=== PATIENT | female | born 1985 | race African-American/Black ===

== ENCOUNTER 2022-02-15 08:33 | Outpatient (REF) | payer OTHER, SELFPAY ==
--- NOTE | ~2022-02-15 | XR_ITS ---
EXAMINATION: XR SACROILIAC JOINTS CLINICAL INFORMATION: Low back pain. COMPARISON: None TECHNIQUE: 3 views of the sacroiliac joints FINDINGS: Bones and soft tissues are normal. No fracture. Alignment is anatomic. Sacroiliac joint spaces are well-maintained without erosions or surrounding sclerosis. XR/XR sacroiliac joint min 3V IMPRESSION: Normal sacroiliac joints.
[2022-02-15 09:04] LABS: MANUAL DIFF FLAG NO
[2022-02-15 09:48] LABS: Basophils Percent Auto 0.8 % (0-2); Eosinophils Absolute Auto 0.1 X10*3/uL (0.0-0.4); Eosinophils Percent Auto 1.5 % (0-4); Hematocrit 37.5 % (37.0-47.0); Hemoglobin 12.3 g/dl (12.0-16.0); Imm Gran Abs Auto 0.01 X10*3/uL (0.00-0.03); Imm Gran Pct Auto 0.3 % (0.0-0.4); Lymphocytes Absolute Auto 1.4 X10*3/uL (1.2-4.9); Lymphocytes Percent Auto 35.8 % (20-40); Mean Corpuscular HGB Conc 32.8 g/dl (31.0-35.0); Mean Corpuscular Hemoglobin 30.5 pg (27.0-33.0); Mean Corpuscular Volume 93.1 fL (80.0-98.0); Mean Platelet Volume 9.5 fL (9.4-12.3); Monocytes Absolute Auto 0.3 X10*3/uL (0.1-1.2); Monocytes Percent Auto 6.9 % (2-11); Neutrophils Absolute Auto 2.2 x10*3/uL (2.0-8.3); Neutrophils Percent Auto 54.7 % (45-73); Platelet Count 239 X10*3/uL (160-400); Red Blood Count 4.03 X10*6/uL (4.20-5.50); Red Cell Distribution Width 13.3 % (11.0-16.0); White Blood Count 3.9 X10*3/uL (4.8-10.8)
[2022-02-15 10:08] LABS: Alanine Aminotransferase 10 U/L (0-31); Alkaline Phosphatase 74 U/L (39-117); Anion Gap 13 (12-20); Aspartate Amino Transferase 16 U/L (5-31); Bilirubin Total 0.6 mg/dL (0.0-1.0); Blood Urea Nitrogen 13 mg/dL (9-16); C Reactive Protein 0.05 mg/dL (< or = 0.50); Calcium 8.9 mg/dL (8.4-10.2); Carbon Dioxide 25 mmol/L (22-29); Chloride 107 mmol/L (96-108); Estimated Glomerular Filt Rate > 60; Glucose Random 77 mg/dL (60-115); Potassium 3.9 mmol/L (3.3-5.1); Sodium 141 mmol/L (135-145); Total Protein 6.9 g/dL (6.5-8.0)
[2022-02-15 10:29] LABS: Free T4 (Free Thyroxine) 0.79 ng/dL (0.71-1.85)
[2022-02-15 11:14] LABS: Appearance Urine Clear; Color Urine Yellow; Glucose Urine UA Negative (Negative); Leukocyte Esterase Urine Negative (Negative); Nitrite Urine Negative (Negative); Specific Gravity - Urine >= 1.030 (1.005-1.025); Urine Blood Negative (Negative); Urine Ketones Trace mg/dL (Negative); Urine Protein Negative (Neg-Trace)
[2022-02-15 11:21] LABS: Bacteria Urine None Seen (None Seen); Hyaline Casts Urine 0-2 /LPF (0-2); RBC Urine 0-2 /HPF (0-2); WBC Urine 0-5 /HPF (0-5)
[2022-02-15 11:36] LABS: Protein/Creatinine Ratio, Ur 0.03 (<0.2); Total Protein Urine Random 13 mg/dL (<12)
[2022-02-15 12:40] LABS: Erythrocyte Sedimentation Rate 9 MM/HR (0-20)
[2022-02-16 10:56] LABS: Complement C3 122 mg/dL (83-193)
[2022-02-16 22:06] LABS: Thyroid Peroxidase Antibodies 375 IU/mL (<9)
[2022-02-17 05:17] LABS: Thyroglobulin Antibodies 1 IU/mL (< or = 1)
[2022-02-17 23:11] LABS: Prot Elec - Alpha1 0.3 g/dL (0.2-0.3); Prot Elec - Alpha2 0.6 g/dL (0.5-0.9); Prot Elec - Beta 1 0.4 g/dL (0.4-0.6); Prot Elec - Beta 2 0.4 g/dL (0.2-0.5); Prot Elec - Gamma 1.3 g/dL (0.8-1.7); Prot Elec - Total Protein 6.9 g/dL (6.1-8.1)
[2022-02-19 14:06] LABS: Anti Nuclear Antibody Screen NEGATIVE (NEGATIVE)
[2022-02-19 14:22] LABS: IgA 130 mg/dL (47-310); IgG 1458 mg/dL (600-1640); IgM 73 mg/dL (50-300)
[2022-02-19 17:01] LABS: Anti DNA DS Antibody <1 IU/mL; Antibody to SS-A Antigen <1.0 NEG AI (<1.0 NEG); Antibody to SS-B Antigen <1.0 NEG AI (<1.0 NEG); SM/Ribonucleoprotein Ab <1.0 NEG AI (<1.0 NEG); Scleroderma 70 Antibody <1.0 NEG AI (<1.0 NEG); Smith Protein <1.0 NEG AI (<1.0 NEG)
[2022-02-20 10:22] LABS: HLA B27 Negative (Negative)
[2022-02-20 12:26] LABS: Anti-Centromere B Antibodies <1.0 NEG AI (<1.0 NEG)
[2022-02-20 13:11] LABS: DRVVT 1:1 Mix Interpretation Not Indicated; Hexagonal Phase Neutralization Negative (Negative); PTT (LAC) Screen 43 sec (<=40)
[2022-02-20 20:36] LABS: Beta-2 Glycoprotein IgA <2.0 U/mL (<20.0); Beta-2 Glycoprotein IgG <2.0 U/mL (<20.0); Beta-2 Glycoprotein IgM <2.0 U/mL (<20.0)
[2022-02-22 07:42] LABS: Cardiolipin IgG Ab <2.0 GPL-U/mL; Cardiolipin IgM Ab <2.0 MPL-U/mL
== END 2022-02-15 08:34 | disposition home or self-care (01) ==
LOC: HO.10HDL 08:33
PROVIDERS: Visit Provider Student in an Organized Health Care Education/Training Program
DX: R76.8 Other specified abnormal immunological findings in serum (principal); E05.00 Thyrotoxicosis with diffuse goiter without thyrotoxic crisis or storm; M79.10 Myalgia, unspecified site; M54.50 Low back pain, unspecified
CPT/HCPCS: 36415; 72202; 80053; 81001; 82550; 82784; 84156; 84165; 84439; 84443; 85025; 85597; 85613; 85652; 85730; 86038; 86039; 86140; 86146; 86147; 86160; 86225; 86235; 86334; 86376; 86800; 86812

== ENCOUNTER 2025-04-16 13:04 | Outpatient (REF) | payer OTHER, SELFPAY ==
--- NOTE | 2025-04-16 13:07 | EMG_ITS ---
Chief complaint: Bilateral arm pain/hand pain Reason for referral: Evaluate for Carpal Tunnel Syndrome versus ulnar neuropathy versus radiculopathy Referred by: Angi FLOYD Procedure done: Bilateral upper extremities NCS/EMG Precautions and/or limitations: None The limb temperature was monitored continuously and remained between 32-36 degrees C during the performance of the NCS. Nerve Conduction Studies Anti Sensory Summary Table ?Stim Site NR Onset (ms) Norm Onset (ms) Peak (ms) Norm Peak (ms) O-P Amp (?V) Norm O-P Amp Site1 Site2 Delta-0 (ms) Dist (cm) Alek (m/s) Norm Alek (m/s) Left Median Anti Sensory (2nd Digit) Wrist ? 2.6 3.4 <3.6 63.5 >10 Wrist 2nd Digit 2.6 14.0 54 Right Median Anti Sensory (2nd Digit) Wrist ? 2.3 3.0 <3.6 47.6 >10 Wrist 2nd Digit 2.3 14.0 61 Left Ulnar Anti Sensory (5th Digit) Wrist ? 2.7 3.6 <3.7 61.4 >15.0 Wrist 5th Digit 2.7 14.0 52 Right Ulnar Anti Sensory (5th Digit) Wrist ? 2.5 3.2 <3.7 43.2 >15.0 Wrist 5th Digit 2.5 14.0 56 Motor Summary Table ?Stim Site NR Onset (ms) Norm Onset (ms) O-P Amp (mV) Norm O-P Amp iAmp (mV) Amp (1st) (%) Site1 Site2 Delta-0 (ms) Dist (cm) Alek (m/s) Norm Alek (m/s) Left Median Motor (Abd Poll Brev) Wrist ? 3.2 <3.9 14.2 >4.5 15.8 100.0 Elbow Wrist 3.8 21.0 55 >45 Elbow ? 7.0 12.4 14.4 87.3 Right Median Motor (Abd Poll Brev) Wrist ? 3.0 <3.9 11.0 >4.5 12.5 100.0 Elbow Wrist 4.0 22.0 55 >45 Elbow ? 7.0 10.6 12.3 96.4 Left Ulnar Motor (Abd Dig Minimi) Wrist ? 3.0 <3.0 10.3 >5 13.5 100.0 B Elbow Wrist 3.4 20.0 59 >45 B Elbow ? 6.4 11.3 14.4 109.7 A Elbow B Elbow 1.7 10.0 59 >45 A Elbow ? 8.1 12.0 15.2 116.5 Right Ulnar Motor (Abd Dig Minimi) Wrist ? 2.6 <3.0 9.3 >5 11.1 100.0 B Elbow Wrist 3.3 19.5 59 >45 B Elbow ? 5.9 8.2 10.1 88.2 A Elbow B Elbow 1.3 10.0 77 >45 A Elbow ? 7.2 8.2 10.2 88.2 Comparison Summary Table ?Stim Site NR Peak (ms) Norm Peak (ms) P-T Amp (?V) Site1 Site2 Delta-P (ms) Norm Delta (ms) Right Median/Radial Dig I Comparison (Digit 1 - 10cm) Median ? 2.3 <2.9 58.3 Median Radial 0.3 Radial ? 2.6 <2.8 20.3 EMG ?Side Muscle Nerve Root Ins Act Fibs Psw Amp Dur Poly Recrt Int Pat Comment Right 1stDorInt Ulnar C8-T1 Nml Nml Nml Nml Nml 0 Nml Complete Right FlexCarRad Median C6-7 Nml Nml Nml Nml Nml 0 Nml Complete Right Biceps Musculocut C5-6 Nml Nml Nml Nml Nml 0 Nml Complete Right Triceps Radial C6-7-8 Nml Nml Nml Nml Nml 0 Nml Complete Right Deltoid Axillary C5-6 Nml Nml Nml Nml Nml 0 Nml Complete Left 1stDorInt Ulnar C8-T1 Nml Nml Nml Nml Nml 0 Nml Complete Left FlexCarRad Median C6-7 Nml Nml Nml Nml Nml 0 Nml Complete Left Biceps Musculocut C5-6 Nml Nml Nml Nml Nml 0 Nml Complete Left Triceps Radial C6-7-8 Nml Nml Nml Nml Nml 0 Nml Complete Left Deltoid Axillary C5-6 Nml Nml Nml Nml Nml 0 Nml Complete FINDINGS: All motor and sensory nerves tested showed normal latencies, amplitudes and conduction velocities. Concentric needle EMG was performed in selected muscles of the bilateral upper extremities. Study did not reveal signs of electric abnormalities as shown in the table above. IMPRESSION: 1. This is a normal study. 2. There is no electrodiagnostic evidence for median neuropathy, ulnar neuropathy, brachial plexopathy, or cervical radiculopathy. Thank you for your kind referral. Jemima Henderson MD, ANAHI Board Certified, [place] [employer] and [employer] (ABPMR) Board Certified, [place] [employer] Electrodiagnostic Medicine (ABEM) CODIN [id number] x 2 extremities MTDD
--- OUTSIDE RECORDS SUMMARY | 2025-04-16 13:25 | XMS_ITS | Encounter Summary ---
Author Organization [facility] [place] [address] Care Team Providers Care Financial Accounting Analyst Name Role Phone Martinez Valdez MD Primary Care Provider [phone] Encounter Details Date Type Department Care Team ([facility] Contact Info) Description 03/18/2025 Results Follow-Up Internal Medicine - [place] [address] [place] [phone] Emily Bland NP [address] [place] [address] Social History Tobacco Use Types Packs/Day Years Used Date Smoking Tobacco: Former Smokeless Tobacco: Never Alcohol Use Standard Drinks/Week Comments Not Currently 0 (1 standard drink = 0.6 oz pur e alcohol) Housing Instability Answer Date Recorde d Are you worried that in the next 2 months you may not have stable housing? No 01/05/2025 Food Access & Nutrition Answer Date Rec orded Do you have access to a vari ety of food including fruits and vegetables? Yes 01/05/2025 Access to Healthcare Answer Date Record ed Within the last 3 months, ho w many times did you visit the emergency department for your medical care? 3 01/05/2025 Health Literacy Answer Date Recorded How often do you need to hav e someone help you when you read instructions, pamphlets, or other written material from your doctor or pharmacy? Rarely 01/05/2025 Caregiver: How often do you need to have someone help you when you read instructions, pamphlets, or other written material from your doctor or pharmacy? Not on file 01/05/2025 Financial Risk Answer Date Recorded How hard is it for you to pa y for the very basics like food, housing, medical care, and air conditioning / heating? Patient declined 01/05/2025 Transportation Answer Date Recorded Has the lack of transportati on kept you from meetings, work, or from getting things needed for daily living? No Has the lack of transportati on kept you from medical appointments or from getting medications? No 01/05/2025 Social Isolation Answer Date Recorded How often do you feel lonely or isolated from those around you? Patient declined 01/05/2025 Food Risk Answer Date Recorded Within the past 12 months we worried whether our food would run out before we got money to buy more. Never true 025 Within the past 12 months th e food we bought just didn't last and we didn't have money to get more. Patient declined 12/25 Dependent Care Answer Date Recorded Do you need help finding or paying for care for your loved ones. For example, early childhood education instructor or elderly care for an older adult? Yes 01/05/2025 Education Answer Date Recorded Do you think completing more education or training, like finishing a GED, going to college, or learning a trade, would be helpful for you? Yes 01/05/2025 Employment and Income Answer Date Recor ded During the last four weeks, have you been actively looking for work? Yes 01/05/2025 Living Situation Answer Date Recorded What is your living situation? Unrecognized valu e 01/05/2025 Comments No Sex and Gender Information Value Date Recorded Sex Assigned at Female 11/03/2024 3:42 PM EDT Legal Sex Female 10:19 PM EST Gender Identity Female 11/03/2024 3:42 PM EDT Sexual Orientation Not on file documented as of this encounter Plan of Treatment Upcoming Encounters Date Type Department Care Team (Late st Contact Info) Description 04/20/2025 8:00 AM EST Office Visit Orthopedic Surgery - [place] [address] [place] [phone] Angi Noonan PA [address] [place] [phone] 04/27/2025 8:00 AM EST Procedure visit Orthopedic Surgery - [place] [address] [facility] [address] [place] [phone] Fiona Dwyer MD [address] [facility] [address] [place] [address] 06/07/2025 10:[address] [facility] Ultrasound [address] [place] [phone] 06/07/2025 1:00 PM EST Appointment [facility] [address] [place] [phone] 07/07/2025 4:00 PM EST Office Visit Pulmonology - [place] [address] [facility] [address] [place] [phone] Karrie Lynch MD [address] [place] [phone] 03/11/2026 10:00 AM EDT Office Visit Vascular Surgery - [place] [address] [place] [address] Angélica Barcenas PA [address] [place] [phone] documented as of this encounter Visit Diagnoses Not on filedocumented in this encounter Additional Health Concerns Assessment Noted Time PHQ-9 Depression Total Score: 9 01/06/20 25 1:00 PM EDT documented as of this encounter Care Teams Financial Accounting Analyst Relationship Specialty Start Date End Date Martinez Valdez MD [address] [facility] [address] [place] [address] PCP - General Internal Medicine 08/26/20 documented as of this encounter
--- OUTSIDE RECORDS SUMMARY | 2025-04-16 13:26 | XMS_ITS ---
Author Name [facility] Organization Unknown Encounters Encounter Type Encounter Reason Primary Diagnosis Location Date Ambulatory [facility] 03/06/2024 Care Team Organization Name Specialty Phone Email Start Date End Da te [facility] 2024
--- OUTSIDE RECORDS SUMMARY | 2025-04-16 13:26 | XMS_ITS | Clinical Summary ---
Author Organization [facility] Address [address] [place] [address] Care Team Providers Care Sand Mixer Operator Name Role Phone Kamila Patton Primary Care Provider [phone] Allergies Active Allergy Reactions Criticality Noted Date Comments Gabapentin Unknown 06/14/2020 Sulfa (Sulfonamide Antibiotics) Rash 05/27 Topiramate Swelling,Rash High 06/14/2020 Medications FLUoxetine (PROzac) 40 mg capsule Take 20 mg by mouth daily. 03/28/2020 Active LORazepam (ATIVAN) 0.5 mg tablet TK 1 T PO D PRN 03/28/2020 Active vitamin D3 25 mcg (1,000 unit) capsule Take 1 capsule by mouth daily. Active ascorbic acid (VITAMIN C) 500 mg tablet Take 500 mg by mouth daily. Active Active Problems Problem Noted Date Diagnosed Date Graves' disease 07/22/2020 Overview (07/22/2020): IMO update Family History Medical History Relation Name Comments Diabetes Father Heart disease Mother Relation Name Status Comments Father Mother Alive Social History Tobacco Use Types Packs/Day Years Used Date Smoking Tobacco: Never Smokeless Tobacco: Never Alcohol Use Standard Drinks/Week Comments Yes 0 (1 standard drink = 0.6 oz pure alcohol) 2-3 times a week wine and/or tequila Comments No Sex and Gender Information Value Date Recorded Sex Assigned at Female 07/25/2020 2:39 PM EST Legal Sex Female 9:28 AM EST Gender Identity Female 07/25/2020 2:39 PM EST Sexual Orientation Straight 07/25/2020 2: 39 PM EST Last Filed Vital Signs Vital Sign Reading Time Taken Comments Blood Pressure 121/86 06/14/2020 10:55 AM EST Pulse 77 06/14/2020 10:55 AM EST Temperature - - Respiratory Rate - - Oxygen Saturation - - Inhaled Oxygen Concentration - - Weight - - Height - - Body Mass Index - - Plan of Treatment Health Maintenance Due Date Last Done Comments Cervical Cancer Screening 1983 HIV Screening 1983 HPV and Pap Smear 1983 Pap Smear 1983 Varicella Vaccines (1 of 2 - 13+ 2-dose series) 1996 Hepatitis B Vaccines (1 of 3 - 19+ 3-dose series) 2002 DTaP,Tdap,and Td Vaccines (1 - Tdap) 2005 Mammogram 2023 Alcohol/Substance Use Screening 05/27/2024 Influenza Vaccine (#1) 2024 0, 05/30/2009 COVID-19 Vaccine ( - 2024-2 6 season) 2025 Pneumococcal Vaccine: Pediatric (0-5 Years) and At-Risk Patients (6-50 Years) Aged Out No longer eligible based on patient's age to complete this topic Insurance [employer] [place] [id number] Care Teams Sand Mixer Operator Relationship Specialty Start Date End Date Kamila Patton [address] [place] [address] PCP - General Internal Medicine 06/01/20
--- OUTSIDE RECORDS SUMMARY | 2025-04-16 13:26 | XMS_ITS | Clinical Summary ---
Author Organization [facility] Address [address] [place] [id number] Care Team Providers Care Wafer Production Worker Name Role Phone Martinez Valdez MD Primary Care Provider Unavailab le Allergies Active Allergy Reactions Criticality Noted Date Comments Gabapentin Other (See Comments) Medium 06/14/2020 Constipation Sulfa Antibiotics Rash Low 06/14/2020 Topiramate Swelling,Rash High 06/14/2020 Facial swelling Medications Medication Sig Dispensed Refills Start Date End Date Status Cholecalciferol 25 MCG (1000 UT) capsule Take 1 capsule by mouth daily. 0 Active ascorbic acid (VITAMIN C) 500 MG tablet Take 500 mg by mouth. 0 Active cyclobenzaprine (FLEXERIL) 5 MG tablet TAKE 1 TABLET BY MOUTH DAILY NEEDED FOR MUSCLE SPASMS AT BEDTIME 0 04/04/2021 Active FLUoxetine (PROzac) 20 MG capsule TAKE 1 CAPSULE BY MOUTH EVERYDAY./AD 0 03/27/2021 Active Aurovela 24 FE 1-20 MG-MCG(24) TABS Take 1 tablet by mouth daily. 0 03/31/2021 Active ondansetron (ZOFRAN) 4 MG tablet TAKE 1 TABLET BY MOUTH EVERY 8 HOURS FOR 3 DAYS NEEDED FOR NAUSEA 0 02/07/2021 Active Multiple Vitamin (MULTIVITAMIN ADULT PO) Take by mouth. 0 Active cetirizine (ZyrTEC) 10 MG tablet Take 10 mg by mouth daily. 0 Active pregabalin (LYRICA) 25 MG capsule Take 1 capsule (25 mg total) by mouth 3 (three) times a day. 90 capsule 0 05/09/2021 Active tiZANidine (ZANAFLEX) 2 MG tablet TAKE 1 TABLET(2 MG) BY MOUTH THREE TIMES DAILY NEEDED FOR MUSCLE SPASMS 90 tablet 0 08/25/2021 Active meloxicam (MOBIC) 15 MG tablet TAKE 1 TABLET(15 MG) BY MOUTH DAILY NEEDED FOR PAIN 30 tablet 0 08/25/2021 Active Family History Medical History Relation Name Comments Diabetes Father Heart disease Father Hepatitis Father Kidney disease Father Pancreatitis Father Arthritis Mother Bradycardia Mother Relation Name Status Comments Father Mother Alive Social History Tobacco Use Types Packs/Day Years Used Date Smoking Tobacco: Former Cigarettes Q uit: 05/03/2013 Smokeless Tobacco: Never Alcohol Use Standard Drinks/Week Comments Not Currently 0 (1 standard drink = 0.6 oz pur e alcohol) Sex and Gender Information Value Date Recorded Sex Assigned at Not on file Gender Identity Not on file Sexual Orientation Not on file Job Start Date Occupation Industry Not on file Not on file Not on file Last Filed Vital Signs Vital Sign Reading Time Taken Comments Blood Pressure 122/90 05/09/2021 1:09 PM EST Pulse 98 05/09/2021 1:09 PM EST Temperature 36.8 C (98.2 F) 05/09/2021 1:09 PM EST Respiratory Rate - - Oxygen Saturation 99% 05/09/2021 1:09 PM EST Inhaled Oxygen Concentration - - Weight 86.6 kg (191 lb) 05/03/2021 2:42 PM EST Height 170.2 cm (5' 7 ) 05/09/2021 1:09 PM EST Body Mass Index 29.91 05/03/2021 2:42 PM EST Plan of Treatment Health Maintenance Due Date Last Done Comments Hepatitis B Vaccines (1 of 3 - 3-dose series) 1983 Hepatitis C Screening 1983 COVID-19 Vaccine (#1) 1983 Depression Screening 1995 Preventative Health Evaluation 2001 DTap / Tdap / Td (1 - Tdap) 2002 Cervical Cancer Screening (P ap Smear) 2004 Influenza Vaccine (#1) 2025 05/30/2009 Pneumococcal Vaccine Aged Out No long er eligible based on patient's age to complete this topic RSV Ped < 20 months Aged Out No longe r eligible based on patient's age to complete this topic Care Teams Wafer Production Worker Relationship Specialty Start Date End Date Martinez Valdez MD PCP - General Internal Medicine 04/26/21
--- OUTSIDE RECORDS SUMMARY | 2025-04-16 13:26 | XMS_ITS | Clinical Summary ---
Author Organization [facility] Address [address] [facility] [place] [address] Care Team Providers Care Director Of Pulmonary Unit Name Role Phone Unavailable Primary Care Provider Unavailabl e Allergies Active Allergy Reactions Criticality Noted Date Comments Desogestrel-Ethinyl Estradiol GI Intolerance 05/28/2022 Other reaction(s): headaches Gabapentin Rash,Other (See Comments) Medium 06/14/2020 Other reaction(s): Unknown Constipation Lactose 05/28/2022 Montelukast 05/28/2022 Other reaction(s): insomnia Sulfa (Sulfonamide Antibiotics) Rash Low 06/14/2020 Sulfamethoxazole-Trime thoprim Rash Low 05/28/2022 Other reaction(s): Bactrim Medications proGESTerone 50 mg/mL injection Inject intramuscularly 12/29/19 22 Active estradioL (VIVELLE-DOT) 0.1 mg/24 hr 03/16/20 22 Active FLUoxetine (PROzac) 20 MG capsule TAKE 1 CAPSULE BY MOUTH EVERYDAY./AD 10/20/19 21 Active Social History Tobacco Use Types Packs/Day Years Used Date Smoking Tobacco: Never Smokeless Tobacco: Never Tobacco Cessation:Counseling Given: Not Answered Alcohol Use Standard Drinks/Week Comments Never 0 (1 standard drink = 0.6 oz pur e alcohol) Comments Unknown Sex and Gender Information Value Date Recorded Sex Assigned at Not on file Legal Sex Female 11:20 AM EDT Gender Identity Not on file Sexual Orientation Not on file Last Filed Vital Signs Vital Sign Reading Time Taken Comments Blood Pressure 120/74 05/28/2022 3:02 PM EST Pulse 70 05/28/2022 3:02 PM EST Temperature 37 C (98.6 F) 05/28/2022 3:02 PM EST Respiratory Rate 14 05/28/2022 3:02 PM EST Oxygen Saturation 100% 05/28/2022 3:02 PM EST Inhaled Oxygen Concentration - - Weight - - Height - - Body Mass Index - - Plan of Treatment Health Maintenance Due Date Last Done Comments Depression: Screening Annual ly using PHQ-2/9 in Adults 18 yrs or above (or HM Modifier)([facility]) 2001 Hepatitis C Virus Infection in Adolescents and Adults: Screening (or Modifier) ([facility]) 2001 [facility] Screening Reminder: Genesis yates for all adults ([facility]) 2001 Tobacco Smoking Cessation: i n Adults excluding Women: Behavioral and Pharmacotherapy Interventions ([facility]) 2001 DTaP/Tdap/Td Vaccines ([facility]) (1 - Tdap) 2002 Cervical Cancer Screenin 1-65 yrs of age (or Modifier) 2004 Cervical Cancer Screening: P ap every 3 yrs pts age 21-65 2004 Cervical Cancer: Pap Screeni ng with Modifier timing ([facility]) 2004 Cervical Cancer: hrHPV alone or with cotesting Pap for Pts 30-65yrs screening every 5yrs ([facility]) 2004 Flu Vaccination: Yearly for ages 18mos through 64 years (or Modifier)([facility]) 12/25/2024 COVID-19 Vaccine Screening: Initial Series and Booster Status ([facility]) ( - 2024- season) 2025 Zoster/Shingles Vaccine Seri es Screening: Adults aged 18+ yrs (or HM Modifiers)([facility]) (1 of 2) 2033 Pneumococcal Vaccination Scr eening: Pts 0-19 & 19-49 yrs of age ([facility]) Aged Out No longer eligible based on patient's age to complete this topic Medical Devices Not on file [place] [address]
--- OUTSIDE RECORDS SUMMARY | 2025-04-16 13:26 | XMS_ITS | Clinical Summary ---
Author Organization 175 [facility] Address [address] [place] [address] Phone Care Team Providers Care Financial Systems Administrator Name Role Phone Martinez Valdez MD Primary Care Provider [phone] Allergies Active Allergy Reactions Criticality Noted Date Comments Gabapentin 06/24/2024 Sulfa (Sulfonamide Antibiotics) 05/28 Topiramate 06/24/2024 Medications hydrOXYzine HCL (ATARAX) 25 mg tablet Take 1 tablet (25 mg total) by mouth every 8 (eight) hours if needed for itching. 60 tablet 3 06/24/19 25 Active celecoxib (CeleBREX) 200 mg capsuleIndicatio ns:Fibromyalgia Take 1 capsule (200 mg total) by mouth 2 (two) times a day. 60 each 5 11/03/19 25 025 Active senna-docusate (PERICOLACE) 8.6-50 mg per tabletIndication s:Irritable bowel syndrome with constipation Take 1 tablet by mouth 1 (one) time each day. 30 each 11 11/20/19 25 026 Active dicyclomine (BENTYL) 20 mg tabletIndication s:Irritable bowel syndrome with constipation Take 1 tablet (20 mg total) by mouth 4 (four) times a day if needed (abdominal pain or cramps). 60 tablet 5 11/20/19 25 026 Active milnacipran (SAVELLA) 12.5 mg tabletIndication s:Fibromyalgia Take 1 tablet (12.5 mg total) by mouth 2 (two) times a day. 60 tablet 3 11/20/19 25 Active cholecalciferol (VITAMIN D-3) 50 mcg (2,000 unit) tabletIndication s:Vitamin D deficiency Take 1 tablet (2,000 Units total) by mouth 1 (one) time each day. 90 tablet 3 12/03/19 25 026 Active magnesium oxide 400 mg magnesium capsuleIndicatio ns:Fibromyalgia Take 1 mg by mouth at bedtime. 90 each 3 12/03/19 25 Active LORazepam (ATIVAN) 0.5 mg tabletIndication s:Fear of flying Take 1 tablet (0.5 mg total) by mouth 2 (two) times a day if needed for anxiety. Max Daily Amount: 1 mg 10 tablet 12/11/19 25 Active diclofenac (CATAFLAM) 50 mg tablet Take 1 tablet (50 mg total) by mouth. 12/22/19 25 Active Synthroid 25 mcg tabletIndication s:Subclinical hypothyroidism,O ther fatigue,Hypothyr oidism, unspecified type Take 0.5 tablets (12.5 mcg total) by mouth 1 (one) time each day before breakfast. 15 each 01/08/20 25 026 Active baclofen (LIORESAL) 10 mg tabletIndication s:Fibromyalgia TAKE 1 TABLET(10 MG) BY MOUTH THREE TIMES DAILY NEEDED FOR MUSCLE SPASMS 21 tablet 04/05/20 25 Active oxyCODONE (OXY-IR) 5 mg immediate release capsuleIndicatio ns:Restless leg syndrome,Sacroil iac joint disease Take 1 capsule (5 mg total) by mouth every 8 (eight) hours if needed for severe pain for up to 10 days. Max Daily Amount: 15 mg 30 capsule 04/07/20 25 025 Active amitriptyline (ELAVIL) 25 mg tabletIndication s:Restless leg syndrome Take 1 tablet (25 mg total) by mouth at bedtime. 30 each 04/07/20 25 026 Active tirzepatide, weight loss, (Zepbound) 2.5 mg/0.5 mL injectionIndicat ions:BMI 30.0-30.9,adult Inject 0.5 mL (2.5 mg total) under the skin every 7 (seven) days. 2 mL 04/07/20 25 Active baclofen (LIORESAL) 10 mg tabletIndication s:Fibromyalgia Take 1 tablet (10 mg total) by mouth 3 (three) times a day if needed for muscle spasms. 21 tablet 11/03/19 25 025 Discontinued Active Problems Problem Noted Date Diagnosed Date Fibromyalgia 11/02/2024 Anxiety 11/02/2024 Varicose veins with pain 11/02/2024 Irritable bowel syndrome with constipation 11/02 Subclinical hypothyroidism 11/02/2024 PCOS (polycystic ovarian syndrome) 11/02/2024 Encounters Date Type Department Care Team Description 04/07/2025 11:30 AM EST Office Visit Internal Medicine - [place] 175 [facility] [address] [place] [phone] Emily Bland NP BMI 30.0-30.9,adult (Primary Dx); Submucous leiomyoma of uterus; Fibromyalgia; Anxiety and depression; Restless leg syndrome; Somnolence, daytime; Subclinical hypothyroidism; Sacroiliac joint disease; Healthcare maintenance 04/07/2025 10:00 AM EST Procedure visit Pulmonology - [place] 175 [facility] [address] [place] [phone] Dyspnea, unspecified type 04/07/2025 9:45 AM EST Consult Pulmonology - [place] 175 [facility] [address] [place] [phone] Karrie Lynch MD Dyspnea, unspecified type (Primary Dx); Loud snoring; Chronic bronchitis, unspecified chronic bronchitis type (CMS/HCC V24, CMS/HCC V28); Abnormal flow volume loop 04/06/2025 4:00 PM EST Office Visit Orthopedic Surgery [facility] 160 [facility] [address] [place] [phone] Fiona Dwyer MD Left hip pain (Primary Dx) 03/18/2025 Results Follow-Up Internal Medicine [facility] 175 [facility] [address] [place] [phone] Emily Bland NP 03/11/2025 11:00 AM EDT Consult Vascular Surgery [facility] 300 [facility] [address] [place] [phone] Summer Guzman MD Varicose veins with pain (Primary Dx); Venous insufficiency 03/11/2025 7:00 AM EDT Ancillary Procedure [facility] [address] [facility] [address] [place] [address] Bilateral leg pain 02/12/2025 Telephone Internal Medicine - [place] 175 [facility] [address] [place] [address] Martinez Valdez MD from Last 3 Months Immunizations Immunization Administration Dates Next Due Influenza trivalent, 0.5mL, preservative free (Fluarix; FluLaval; Fluzone) ages 6mo and older (Afluria) 3 years and older 04/07/2025 Medical History Medical History Date Comments Historical Medical DX DX:Grave's disease; COMMENT: in remission since 05/2002, PTU in 05/29 Abdominal pain DX:Abdominal brandy n Irritable bowel syndrome DX:Irri table bowel syndrome Abdominal cramping DX:Abdominal cramping Family History Medical History Relation Name Comments Breast cancer Maternal Cousin Breast cancer Mother's Sister Relation Name Status Comments Maternal Cousin Alive Mother's Sister Alive Social History Tobacco Use Types Packs/Day Years Used Date Smoking Tobacco: Former Smokeless Tobacco: Never Tobacco Cessation:Counseling Given: Not Answered Alcohol Use Standard Drinks/Week Comments Not Currently [...] got money to buy more. Never true Within the past 12 months th e food we bought just didn't last and we didn't have money to get more. Patient declined 12/25 Dependent Care Answer Date Recorded Do you need help finding or paying for care for your loved ones. For example, children's tutor or elderly care for an older adult? [...] PM EDT Sexual Orientation Not on file Obstetrics History Last Filed Vital Signs Vital Sign Reading Time Taken Comments Blood Pressure 100/60 04/07/2025 11:40 AM EST Pulse 90 04/07/2025 11:40 AM EST Temperature 36.2 C (97.1 F) 04/07/2025 11:40 AM EST Respiratory Rate 20 04/07/2025 9:50 AM EST Oxygen Saturation 97% 04/07/2025 11: 40 AM EST Inhaled Oxygen Concentration - - Weight 86.1 kg (189 lb 12.8 oz) 11/12/2 025 11:40 AM EST Height 170.2 cm (5' 7 ) 04/07/2025 11:4 0 AM EST Body Mass Index 29.73 04/07/2025 11:40 AM EST Plan of Treatment Upcoming Encounters Date Type Department Care Team (Late st Contact Info) Description 04/20/2025 8:00 AM EST Office Visit Orthopedic Surgery - [place] 175 [facility] [address] [place] [phone] Angi Noonan PA 175 [facility] [address] [place] [address] 04/27/2025 8:00 AM EST Procedure visit Orthopedic Surgery [facility] 160 [facility] [address] [place] [phone] Fiona Dwyer MD 175 [facility] 160 [place] [address] 06/07/2025 10:30 AM EST Appointment [facility] Ultrasound [address] [place] [phone] 06/07/2025 1:00 PM EST Appointment [facility] [address] [place] [phone] 07/07/2025 4:00 PM EST Office Visit Pulmonology [facility] 175 [facility] [address] [place] [phone] Karrie Lynch MD [address] [place] [phone] 03/11/2026 10:00 AM EDT Office Visit Vascular Surgery - [place] [address] [facility] [address] [place] [phone] Angélica Barcenas PA [address] [place] [address] Health Maintenance Due Date Last Done Comments DTaP,Tdap,and Td Vaccines (1 - Tdap) 2002 Hepatitis B Vaccines (1 of 3 - 19+ 3-dose series) 2002 Cervical Cancer Screening: P ap Smear 2004 HPV Vaccines (1 - 3-dose SCD M series) 2010 COVID-19 Vaccine ( - 2024-2 6 season) 2025 09/17/2020, 08/20/2020, 07/25/2020 Social Influencers of Health Screening 01/05/2026 01/05/2025 Breast Cancer Screening 12/03/2026 12/04/19, 11/16/2024 Cholesterol Screening (Lipid Panel) 11/19/2029 11/19/2024 RSV Immunization Adult Patients (1 - 1-dose 75+ series) 2058 HIV Screening Completed 11/19/2024 Hepatitis C Screening Completed 11/19/2024 Depression Screening Completed 01/05/2025 Influenza Vaccine Completed 04/07/2025, 05/30/2009, 05/30/2009 HIB Vaccines Aged Out No longer eligi ble based on patient's age to complete this topic Hepatitis A Vaccines Aged Out No long er eligible based on patient's age to complete this topic IPV Vaccines Aged Out No longer eligi ble based on patient's age to complete this topic MMR Vaccines Aged Out No longer eligi ble based on patient's age to complete this topic Meningococcal ACWY Vaccine Aged Out N o longer eligible based on patient's age to complete this topic Meningococcal B Vaccine Aged Out No l onger eligible based on patient's age to complete this topic Pneumococcal Vaccine: Pediatrics (0 to 5 Years) and At-Risk Patients (6 to 49 Years) Aged Out No longer eligible b ased on patient's age to complete this topic RSV Immunization Patients Under 20 months Aged Out No longer eligible b ased on patient's age to complete this topic Varicella Vaccines Aged Out No longer eligible based on patient's age to complete this topic Procedures Procedure Name Priority Date/Time Associated Diagnosis Comments PULMONARY FUNCTION TESTING Routine 04/07/2025 10:43 AM EST Dyspnea, unspecified type VAS US DUPLEX LOWER EXT VENOUS INSUFFICIENCY BILATERAL Routine 03/11/2025 7:50 AM EDT Bilateral leg pain MG MAMMO DIAGNOSTIC ADDL VIEWS LEFT Routine 12/03/2024 3:39 PM EDT Left breast mass Breast microcalcifications HEPATITIS C ANTIBODY Routine 11/19/2024 11:57 AM EDT Screen for STD (sexually transmitted disease) HIV 1, 2 ANTIBODY, P24 ANTIGEN WITH REFLEX TO DIFFERENTIATION Routine 11/19/2024 11:57 AM EDT Screen for STD (sexually transmitted disease) LIPID PANEL WITH REFLEX TO DIRECT LDL Routine 11/19/2024 11:57 AM EDT Screening for ischemic heart disease from Last 3 Months or Most Recently Relevant to Health Maintenance Results * Pulmonary function testing: Carbon Monoxide Diffusing Capacity, Nitrogen Wash Out, Spirometry with Bronchodilator, Vital Capacity Test (04/07/2025 10:43 AM EST) Impressions Karrie Lynch MD - 04/07/2025 10:43 AM EST FEV1/FVC 92%. FEV1 3.38 at 122%. FVC 108%. No bronchodilator response. TLC 80%. RV 40%. RV/TLC 48%. DLCO 82% (90%). Compared to 04/06/2022, there is continued loss in function, more than when adjusted for age. Shape of flow-volume loop, appeared to have evidence of fixed obstruction with flattening of both inspiratory and expiratory limb. Fixed obstruction. No restriction. And no decrease in diffusion. The truncated flow-volume loop or fixed obstruction require clinical correlation, consider tracheal anomalies. us Karrie Lynch MD PFT ORDERABLES Final Result * Vascular US duplex lower extremity venous insufficiency bilateral (03/11/2025 7:50 AM EDT) Left GSK radha 0.35 cm CV VAS LAB Left GSDC radha 0.17 cm CV VAS LAB Left GSMT radha 0.41 cm CV VAS LAB Left GSPC radha 0.23 cm CV VAS LAB Left GSPT radha 0.45 cm CV VAS LAB Left pop reflux 1,989 ms CV VAS LAB Left SFJ Diameter 0.72 cm CV VAS LAB Left SSMC radha 0.13 cm CV VAS LAB Left SSPC radha 0.12 cm CV VAS LAB Right GSK radha 0.32 cm CV VAS LAB Right GSDC radha 0.18 cm CV VAS LAB Right GSMT radha 0.34 cm CV VAS LAB Right GSPC radha 0.26 cm CV VAS LAB Right GSPT radha 0.36 cm CV VAS LAB Right pop reflux 1,817 ms CV VAS LAB Right SFJ Diameter 0.58 cm CV VAS LAB Right SSMC radha 0.16 cm CV VAS LAB Right SSPC radha 0.17 cm CV VAS LAB Right SFJ Reflux Time 394 ms CV VAS LAB Right SPJ Reflux Time 1,056 ms CV VAS LAB Right SPJ Diameter 0.39 cm CV VAS LAB Anatomical Region Laterality Modality Vascular, Abdomen Ultrasound Narrative 03/15/2025 10:04 AM EDT Right: 1. The right lower extremity veins are compressible and there is no evidence of DVT in the right lower extremity venous system. 2. The GSV has mild reflux of 0.3 seconds at the saphenofemoral junction. 3. The SSV has significant reflux of 1.0 seconds at the saphenopopliteal junction. 4. The right popliteal vein has clinically significant reflux of 1.8 seconds. Left: 1. The left lower extremity veins are compressible and there is no evidence of DVT in the left lower extremity venous system. 2. The GSV and SSV has no significant reflux. 3. The left popliteal vein has clinically significant reflux of 1.9 seconds. Right Lower Venous No evidence of deep vein thrombosis in the common femoral, deep femoral, proximal femoral, mid femoral, distal femoral, popliteal, greater saphenous, small saphenous, posterior tibial and peroneal veins of the right leg. The vessels showed compressibility. Interrogation showed phasic and spontaneous Doppler signals. Right Venous Insufficiency Duplex The exam was performed with the patient in reverse Trendelenburg. Left Lower Venous No evidence of deep vein thrombosis in the common femoral, deep femoral, proximal femoral, mid femoral, distal femoral, popliteal, greater saphenous, small saphenous, posterior tibial and peroneal veins of the left leg. The vessels showed compressibility. Interrogation showed phasic and spontaneous Doppler signals. Left Venous Insufficiency Duplex The exam was performed with the patient in reverse trendelenburg. [employer] Details A curran scale, color and doppler analysis ultrasound was performed. During the study longitudinal and transverse views were obtained. Pulsed wave doppler was performed. us Emily Bland NP CV VASCULAR PROCEDURES Final Res ult * MG Mammo Diagnostic Addl Views Left (12/03/2024 3:39 PM EDT) Anatomical Region Laterality Modality Breast Left Mammography 12/03/2024 3:41 PM EDT Impressions 12/03/2024 3:51 PM EDT There is a probably benign circumscribed oval mass in the 6 o'clock position. There are probably benign regional calcifications central left breast. The patient has generalized bilateral breast symptoms. The patient has a whitish abnormality on the surface of the left nipple. These areas should be managed on the basis of the clinical breast exam. Recommend diagnostic left mammography and targeted left breast ultrasound in 6 months ASSESSMENT: BI-RADS 3: PROBABLY BENIGN RECOMMENDATION(S): 1: Clinical correlation recommended BILATERAL Recommend diagnostic left mammography and targeted left breast ultrasound in 6 months. [facility] [address], [address] -------- FINAL REPORT -------- Dictated By: Lion Kim Dictated Date: 12/03/2024 15:41 ET Assigned Physician: Lion Kim Reviewed and Electronically Signed By: Lion Kim Signed Date: 12/03/2024 15:51 ET Workstation ID: [id number] Transcribed By: Self Edit Transcribed Date: 12/03/2024 15:41 ET Narrative 12/03/2024 3:51 PM EDT EXAM: DIAGNOSTIC MAMMOGRAPHY, UNILATERAL LEFT ULTRASOUND: DIAGNOSTIC ULTRASOUND, UNILATERAL LEFT HISTORY: Abnormal initial screening mammogram. Oval mass with associated calcifications left breast. During the examination while interviewing the patient she noted generalized bilateral breast pain, inflammation and a whitish abnormality involving the left nipple. COMPARISON: Left mammography 11/17/24 TECHNIQUE: Spot magnified views of the left breast and multiple projections ADDITIONAL IMAGING: None High-frequency linear transducer ultrasound of the left breast targeted to the area(s) of clinical concern. Computer aided detection was not utilized. TISSUE DENSITY: There are scattered areas of fibroglandular density. (BI-RADS category B) FINDINGS: MAMMOGRAPHY: LEFT BREAST: There is a circumscribed equal density oval mass in the lower left breast 3 cm from the nipple. There may be 2 associated calcifications. There are regional round punctate and amorphous calcifications. No branching forms. There are no distortions. ULTRASOUND: LEFT BREAST 6 o'clock position, 3 cm from left nipple Circumscribed homogeneous nearly anechoic oval mass with long axis parallel. There is a sharp back wall. There is equivocal posterior enhancement. There is no color signal. 7//25-0.5 cm This likely correlates with the finding on the mammogram. This has probably benign features Procedure Note Lion Kim MD - 12/03/2024 EXAM: DIAGNOSTIC MAMMOGRAPHY, UNILATERAL LEFT ULTRASOUND: DIAGNOSTIC ULTRASOUND, UNILATERAL LEFT HISTORY: Abnormal initial screening mammogram. Oval mass with associatedcalcifications left breast. During the examination while interviewing the patient she notedgeneralized bilateral breast pain, inflammation and a whitishabnormality involving the left nipple. COMPARISON: Left mammography 11/17/24 TECHNIQUE: Spot magnified views of the left breast and multipleprojections ADDITIONAL IMAGING: None High-frequency linear transducer ultrasound of the left breast targeted tothe area(s) of clinical concern. Computer aided detection was not utilized. TISSUE DENSITY: There are scattered areas of fibroglandular density.(BI-RADS category B) FINDINGS: MAMMOGRAPHY: LEFT BREAST: There is a circumscribed equal density oval mass in the lower left breast3 cm from the nipple. There may be 2 associated calcifications. There are regional round punctate and amorphous calcifications. Nobranching forms. There are no distortions. ULTRASOUND: LEFT BREAST 6 o'clock position, 3 cm from left nipple Circumscribed homogeneous nearly anechoic oval mass with long axisparallel. There is a sharp back wall. There is equivocal posteriorenhancement. There is no color signal. 7/10/25-0.5 cm This likely correlates with the finding on the mammogram. This has probably benign features IMPRESSION: There is a probably benign circumscribed oval mass in the 6 o'clockposition. There are probably benign regional calcifications central left breast. The patient has generalized bilateral breast symptoms. The patient has awhitish abnormality on the surface of the left nipple. These areas shouldbe managed on the basis of the clinical breast exam. Recommend diagnostic left mammography and targeted left breast ultrasoundin 6 months ASSESSMENT: BI-RADS 3: PROBABLY BENIGN RECOMMENDATION(S): 1: Clinical correlation recommended BILATERAL Recommend diagnostic left mammography and targeted left breast ultrasoundin 6 months. Mammography location: [facility] [address] [place], [address] -------- FINAL REPORT -------- Dictated By: Lion Kim Dictated Date: 12/03/2024 15:41 ET Assigned Physician: Lion Kim Reviewed and Electronically Signed By: Lion Kim Signed Date: 12/03/2024 15:51 ET Workstation ID: [id number] Transcribed By: Self Edit Transcribed Date: 12/03/2024 15:41 ET us Martinez Valdez MD IMG BI PROCEDURES Final Result * Hepatitis C antibody (11/19/2024 11:57 AM EDT) Hepatitis C Antibody Negative Negative LAB CHEMISTRY METHOD 11/19/2024 8:19 PM EDT [facility] Blood Venous blood specimen / Unknown Venipuncture / Unknown 11/19/2024 11:57 AM EDT 11/19/2024 11:57 AM EDT us Emily Bland NP LAB BLOOD ORDERABLES Final Resul t [facility] [address] [place] [address], [place] [phone] * HIV 1,2 antibody, p24 antigen with reflex to differentiation (11/19/2024 11:57 AM EDT) HIV Combo AB/AG Negative Negative LAB CHEMISTRY METHOD 11/19/2024 8:19 PM EDT [facility] Blood Venous blood specimen / Unknown Venipuncture / Unknown 11/19/2024 11:57 AM EDT 11/19/2024 11:57 AM EDT Narrative [facility] - 11/19/2024 8:19 PM EDT This assay is a 4th generation assay allowing for earlier detection of HIV infection by detecting the presence of the HIV-1 p24 antigen as well as the traditional antibodies to HIV type 1 (including group O) and type 2. Use of a 4th generation assay is the current CDC recommendation for HIV screening. Emily Bland NP LAB BLOOD ORDERABLES Final Resul t [facility] [address] [place] [address], [place] [phone] * (ABNORMAL) Lipid panel with reflex to direct LDL (11/19/2024 11:57 AM EDT) Cholesterol 233(H) 0 - 200 mg/dL LAB CHEMISTRY METHOD 11/19/2024 7:54 PM EDT [facility] Triglycerides 34 0 - 150 mg/dL LAB CHEMISTRY METHOD 11/19/2024 7:54 PM EDT [facility] HDL 95 >=40 mg/dL LAB CHEMISTRY METHOD 11/19/2024 7:54 PM EDT [facility] LDL Calculated 131(H) 0 - 100 mg/dL LAB CHEMISTRY METHOD 11/19/2024 7:54 PM EDT [facility] VLDL Cholesterol Markos 6.8 mg/dL LAB CHEMISTRY METHOD 11/19/2024 7:54 PM EDT [facility] Non HDL Chol. (LDL+VLDL) 138 <145 mg/dL LAB CHEMISTRY METHOD 11/19/2024 7:54 PM EDT [facility] Chol/HDL Ratio 2.5 0.0 - 4.4 LAB CHEMISTRY METHOD 11/19/2024 7:54 PM T [facility] Blood Venous blood specimen / Unknown Venipuncture / Unknown 11/19/2024 11:57 AM EDT 11/19/2024 11:57 AM EDT us Emily Bland TECHNICIAN [facility]OLOG[facility] LAB BLOOD ORDERABLES Final Resul t [facility] [address] [place] [address], from Last 3 Months or Most Recently Relevant to Health Maintenance [facility] Care Teams Financial Systems Administrator Relationship Specialty Start Date End Date Martinez Valdez MD [address] [address] PCP - General Internal Medicine 08/26/20
== END 2025-04-16 13:05 | disposition home or self-care (01) ==
LOC: HO.NEURO 13:04
PROVIDERS: PCP Internal Medicine; Visit Provider Physician Assistant
DX: M79.642 Pain in left hand (principal); M79.641 Pain in right hand
CPT/HCPCS: 95886; 95911

== ENCOUNTER → 2025-04-16 13:07 | Outpatient (BNV) | payer OTHER, SELFPAY | PROVIDERS: PCP Internal Medicine; Visit Provider Physical Medicine & Rehabilitation | DX: M79.641 Pain in right hand (principal); M79.642 Pain in left hand | CPT/HCPCS: 95886; 95911 ==